=== PATIENT | male | born 2000 | race Caucasian/White ===

== ENCOUNTER 2021-06-26 11:44 | Emergency (ER) | payer OTHER ==
[2021-06-26] MEDS ORDERED: NAPROXEN500 MG PO (13:09)
== END 2021-06-26 13:13 | disposition home or self-care (01) ==
LOC: ER1 11:44
DX: S62.336A Displaced fracture of neck of fifth metacarpal bone, right hand, initial encounter for closed fracture (principal); W19.XXXA Unspecified fall, initial encounter
CPT/HCPCS: 29125; 73130; 99283